=== PATIENT | female | born 1960 | race Caucasian/White ===

== ENCOUNTER 2019-02-14 12:46 | Outpatient (CLI) | payer BC ==
[~2019-02-14 12:46] MED LIST: FERUMOXYTOL 510 MG in NORMAL SALINE 100 ML IV PRN; NORMAL SALINE 250 ML IV PRN
[2019-02-14 13:14] VITALS: BP 140/81
== END 2019-02-14 14:11 | disposition home or self-care (01) ==
LOC: 5TH 12:46 → II 12:46
PROVIDERS: ATTEND Internal Medicine
PROC: 3E033GC Introduction of Other Therapeutic Substance into Peripheral Vein, Percutaneous Approach (ICD-10-PCS; principal; 2019-02-14)
DX: D50.8 Other iron deficiency anemias (principal); K90.9 Intestinal malabsorption, unspecified
CPT/HCPCS: 96365; Q0138; J7050